=== PATIENT | female | born 1935 | race Two or more races ===

== ENCOUNTER 2018-03-19 17:09 | Emergency (ER) | payer MEDICARE ==
[2018-03-19] MEDS: ACETAMINOPHEN 325 MG TABLET. PO (18:00)
[2018-03-19] MEDS: DIPHTH,PERTUSS(ACELL),TET TOX 0.5 ML DISP.SYRIN. VAX IM (18:34)
== END 2018-03-19 19:43 | disposition home or self-care (01) ==
LOC: ER 17:09
DX: S01.112A Laceration without foreign body of left eyelid and periocular area, initial encounter (principal); S80.01XA Contusion of right knee, initial encounter; S40.011A Contusion of right shoulder, initial encounter; S00.83XA Contusion of other part of head, initial encounter; W18.39XA Other fall on same level, initial encounter; Y93.89 Activity, other specified; Y99.8 Other external cause status; Y92.89 Other specified places as the place of occurrence of the external cause
CPT/HCPCS: 70450; 70486; 72125; 73060; 73562; 90471; 90715; 93005; 99284-25